=== PATIENT | male | born 1960 | race Caucasian/White ===

== ENCOUNTER 2018-07-24 09:27 | Inpatient (IN) | payer MEDICAID, OTHER ==
[~2018-07-24] VITALS: Ht 157.5 cm; Wt 54.9 kg
[2018-07-24] MEDS ORDERED: ASPIRIN 325MG EC TABLET PO ONE (10:45)
[2018-07-24 11:04] LABS: BASOPHILS % 0.4 % (0.0-2.0); EOSINOPHILS % 0.2 % (0.0-5.0); HEMATOCRIT. 40.9 % (42.0-52.0); HEMOGLOBIN. 14.1 g/dL (14.0-18.0); LYMPHOCYTES % 8.9 % (20.0-50.0); MEAN CORPUSCULAR HEMOGLOBIN 32.2 pg (28.0-32.0); MEAN CORPUSCULAR VOLUME 93.4 fL (80.0-94.0); MONOCYTES % 8.2 % (2.0-8.0); NEUTROPHILS % 82.3 % (40.0-76.0); PLATELET 248 x1000/uL (130-400); RED BLOOD CELL COUNT 4.38 mill/uL (4.7-6.1); RED CELL DISTRIBUTION WIDTH 13.8 % (11.6-14.6)
[2018-07-24 11:10] LABS: CHLORIDE 97 mEq/L (98-107)
[2018-07-24] MEDS ORDERED: DIPHENHYDRAMINE 50MG/ML VIAL IV PRN (14:00)
[2018-07-24] MEDS ORDERED: IPRATROPIUM/ALBUTEROL 0.5-3(2.5)MG/3ML NEB INH PRN (14:00)
[2018-07-24] MEDS ORDERED: ACETAMINOPHEN 325MG TABLET PO PRN (14:00)
[2018-07-24] MEDS ORDERED: DOCUSATE SODIUM 100MG CAPSULE PO PRN (14:00)
[2018-07-24] MEDS ORDERED: GUAIFENESIN 200MG/10ML SUGAR FREE UDC PO PRN (14:00)
[2018-07-24] MEDS ORDERED: ONDANSETRON HCL 4MG/2ML INJ IV PRN (14:00)
[2018-07-24 15:44] LABS: PHOSPHORUS 3.4 mg/dL (2.5-4.9)
[2018-07-24 17:19] LABS: ETHANOL BLOOD < 10 mg/dL
[2018-07-24 17:24] LABS: CREATINE KINASE 55 IU/L (39-308); CREATINE KINASE MB FRACTION 1.3 ng/mL (0.5-3.6)
[2018-07-24] MEDS ORDERED: ENOXAPARIN 40MG/0.4ML SYR SUBCUT NR (19:00)
[2018-07-24 23:45] VITALS: BP 164/76
[2018-07-25] VITALS: BP 164/76
[2018-07-25] MEDS: NITROGLYCERIN 0.4MG TABLET SL SL PRN ×3 (00:05→00:14)
[2018-07-25 00:42] LABS: CREATINE KINASE MB FRACTION 1.5 ng/mL (0.5-3.6)
[2018-07-25] MEDS ORDERED: LORAZEPAM 0.5MG TABLET PO PRN (02:15)
[2018-07-25 04:00] VITALS: BP 135/63
[2018-07-25] MEDS ORDERED: MAGNESIUM 2 G PREMIX 50 ML IV NR ×2 (04:00→11:00)
[2018-07-25] MEDS: NITROGLYCERIN OINT 1GM/INCH UDPKT TD SCH ×3 (05:22→22:04)
[2018-07-25 06:37] LABS: BASOPHILS % 0.6 % (0.0-2.0); EOSINOPHILS % 2.2 % (0.0-5.0); HEMATOCRIT. 42.1 % (42.0-52.0); HEMOGLOBIN. 14.3 g/dL (14.0-18.0); LYMPHOCYTES % 22.5 % (20.0-50.0); MEAN CORPUSCULAR HEMOGLOBIN 31.8 pg (28.0-32.0); MEAN CORPUSCULAR VOLUME 93.4 fL (80.0-94.0); MEAN PLATELET VOLUME 8.5 fl (7.4-10.4); NEUTROPHILS % 68.7 % (40.0-76.0); PLATELET 214 x1000/uL (130-400); RED BLOOD CELL COUNT 4.51 mill/uL (4.7-6.1); RED CELL DISTRIBUTION WIDTH 13.6 % (11.6-14.6)
[2018-07-25] MEDS ORDERED: DEXTROSE 50% WATER 50ML SYRINGE IV PRN (06:45)
[2018-07-25] MEDS: BLOOD SUGAR DIAGNOSTIC STRIP TEST SCH ×4 (06:47→21:59)
[2018-07-25] MEDS: INSULIN LISPRO 100 UNITS/ML SUBCUT SCH ×4 (06:55→22:02)
[2018-07-25 07:01] LABS: CHLORIDE 101 mEq/L (98-107)
[2018-07-25 07:20] LABS: LDL CHOLESTEROL 122 mg/dL (5-100)
[2018-07-25 07:21] LABS: HDL CHOLESTEROL 68 mg/dL (40-59)
[2018-07-25 08:00] VITALS: BP 127/73
[2018-07-25] MEDS: HYDROCODONE/ACETAMINOPHEN 5/325MG TABLET PO PRN ×2 (09:07→17:35)
[2018-07-25] MEDS: ASPIRIN 81MG EC TABLET PO SCH (09:07)
[2018-07-25] MEDS: AMLODIPINE 2.5MG TABLET PO SCH ×2 (09:08→20:03)
[2018-07-25] MEDS: MAGNESIUM OXIDE 400MG TABLET PO SCH ×2 (11:45→17:34)
[2018-07-25 12:00] VITALS: BP 143/75
[2018-07-25 16:00] VITALS: BP 150/84
[2018-07-25 20:00] VITALS: BP 159/87
[2018-07-25] MEDS ORDERED: ENOXAPARIN 40MG/0.4ML SYR SUBCUT SCH (20:00)
[2018-07-26] VITALS: BP 143/73
[2018-07-26] MEDS: HYDROCODONE/ACETAMINOPHEN 5/325MG TABLET PO PRN ×3 (01:31→12:40)
[2018-07-26 04:00] VITALS: BP 151/81
[2018-07-26] MEDS: NITROGLYCERIN OINT 1GM/INCH UDPKT TD SCH ×2 (05:34→14:00)
[2018-07-26] MEDS: BLOOD SUGAR DIAGNOSTIC STRIP TEST SCH ×2 (06:42→12:07)
[2018-07-26] MEDS: INSULIN LISPRO 100 UNITS/ML SUBCUT SCH ×2 (06:46→12:31)
[2018-07-26 07:29] LABS: BASOPHILS % 0.5 % (0.0-2.0); EOSINOPHILS % 3.4 % (0.0-5.0); HEMATOCRIT. 40.9 % (42.0-52.0); HEMOGLOBIN. 13.9 g/dL (14.0-18.0); LYMPHOCYTES % 19.6 % (20.0-50.0); MEAN CORPUSCULAR HEMOGLOBIN 31.9 pg (28.0-32.0); MEAN CORPUSCULAR VOLUME 93.5 fL (80.0-94.0); MEAN PLATELET VOLUME 8.5 fl (7.4-10.4); MONOCYTES % 5.6 % (2.0-8.0); NEUTROPHILS % 70.9 % (40.0-76.0); PLATELET 170 x1000/uL (130-400); RED BLOOD CELL COUNT 4.37 mill/uL (4.7-6.1); RED CELL DISTRIBUTION WIDTH 13.5 % (11.6-14.6)
[2018-07-26 07:40] LABS: CHLORIDE 103 mEq/L (98-107)
[2018-07-26] MEDS: ASPIRIN 81MG EC TABLET PO SCH (08:08)
[2018-07-26] MEDS: AMLODIPINE 2.5MG TABLET PO SCH (08:09)
[2018-07-26] MEDS: MAGNESIUM OXIDE 400MG TABLET PO SCH (08:09)
[2018-07-26 12:40] VITALS: BP 138/77
== END 2018-07-26 17:20 | disposition home or self-care (01) | DRG 203 ==
LOC: ER 09:27 → 5WST 13:17 → EDBEDREQ 13:19 → ENRESERV 21:03
PROVIDERS: ADMIT Internal Medicine; ATTEND Internal Medicine
DX: M94.0 Chondrocostal junction syndrome [Tietze] (principal); J84.10 Pulmonary fibrosis, unspecified; I24.9 Acute ischemic heart disease, unspecified; E11.65 Type 2 diabetes mellitus with hyperglycemia; J44.1 Chronic obstructive pulmonary disease with (acute) exacerbation; E83.42 Hypomagnesemia; E78.00 Pure hypercholesterolemia, unspecified; E78.1 Pure hyperglyceridemia; E78.5 Hyperlipidemia, unspecified; F10.20 Alcohol dependence, uncomplicated; I10 Essential (primary) hypertension; F17.200 Nicotine dependence, unspecified, uncomplicated; Z71.6 Tobacco abuse counseling; Z79.82 Long term (current) use of aspirin; Z91.19 Patient's noncompliance with other medical treatment and regimen; Z88.0 Allergy status to penicillin
CPT/HCPCS: 36415; 71045; 80048; 80061; 80320; 82550; 82553; 82962; 83036; 83735; 83880; 84100; 84443; 84484; 93005; 93306; 93970; 96374; 97162; 97166; 99285; J1650; J1815; J3475; J7040; G0480